=== PATIENT | female | born 1930 | race Caucasian/White ===

== ENCOUNTER → 2017-01-05 | Outpatient (CLI) | payer OTHER ==
--- NOTE | 2017-01-05 17:47 | MR ---
MRI of the Brain (Without Contrast) History: Memory loss, R 41.3. Technique: T1-weighted images were acquired axially and sagittally from the foramen magnum to the ve rtex. Axial fast inversion recovery, fast T2-weighted, GRE and diffusion-weighted axial images were obtained without contrast. Comparison: None Findings: The ventricles, cisterns, and sulci are consistent with each other and age-appropriate cer ebral atrophy, that is greater in the supratentorium. A single tiny supratentorial white matter focus of isovolumic hyperintensity and a single focus in the right floresita are consistent with microvascular ischemic change. There is no hydrocephalus, midline shift, herniation, or epidural/subdural hematomas . No intracranial hemorrhage or masses. Diffusion-weighted sequence demonstrates no acute infarct. Ce rebellar tonsils are in normal position. Pituitary gland is normal in size. Normal signal flow-void i n the superior sagittal sinus, basilar artery, and bilateral internal carotid arteries indicating pat ency. Paranasal sinuses and mastoid air cells are clear. Impression: Cerebral atrophy consistent with the patient's age. No mass lesion identified.
== END ==
LOC: FIMAGING 15:23
PROVIDERS: ATTEND Psychiatry & Neurology Neurology
DX: R41.3 Other amnesia (principal); G31.9 Degenerative disease of nervous system, unspecified

== ENCOUNTER 2017-06-20 20:49 | Emergency (ER) | payer OTHER ==
[2017-06-20 22:33] LABS: % IMMATURE GRANULYOCYTES 0.1 % (0.0-1.1); ABSOLUTE IMMATURE GRANULOCYTES 0.01 10^3/uL (0.00-0.10); ADD DIFF? NO; ADD MORPH? NO; ADD SCAN? NO; ATYPICAL LYMPHOCYTE FLAG 50 (0-99); FRAGMENT RBC FLAG 0 (0-99); HEMATOCRIT 34.9 % (38.0-47.0); HEMOGLOBIN 11.7 g/dL (12.6-16.3); LEFT SHIFT FLG 0 (0-99); LIPEMIA HEMOLYSIS FLAG 80 (0-99); MEAN CELL HEMOGLOBIN 30.5 pg (27.9-34.1); MEAN CELL HEMOGLOBIN CONCENTR. 33.5 g/dL (32.4-36.7); MEAN CELL VOLUME 91.1 fL (81.5-99.8); MEAN PLATELET VOLUME 9.6 fL (8.7-11.7); PLATELET CLUMPS FLAG 0 (0-99); PLATELET COUNT 214 10^3/uL (150-400); RED BLOOD CELL COUNT 3.83 10^6/uL (4.18-5.33); RED CELL DISTRIBUTION WIDTH 13.5 % (11.5-15.2)
[2017-06-20 22:46] LABS: ALBUMIN 3.5 g/dL (3.5-5.0); BILIRUBIN,TOTAL 0.5 mg/dL (0.1-1.4); CALCIUM 8.8 mg/dL (8.5-10.4); CREATININE 1.1 mg/dL (0.6-1.0); TOTAL PROTEIN 5.9 g/dL (6.3-8.2)
[2017-06-20] MEDS ORDERED: ceFAZolin 1 GM VIAL ONE (22:50)
[2017-06-20] MEDS ORDERED: NS 100 ML BAG (MINI-BAG) IV ONE (22:51)
[2017-06-20] MEDS ORDERED: ceFAZolin 1 GM in NS 100 ML IV ONE (23:00)
--- NOTE | 2017-06-20 23:33 | EDPHY ---
H & P Time Seen by Provider: 06/20/17 21:16 HPI/ROS: 87-year-old delightful female presents complaining of laceration to her right medial calf approximately 5 days ago, she did local wound care and was doing fine until today she noticed redness and swelling at the site around her healing laceration/skin tear She denies fever or chills, she denies posterior calf pain. Review of systems As per HPI General no fever no chills no weakness HEENT no eye pain no eye discharge. No eye redness, no sore throat Respiratory no cough, no shortness of breath Cardiac no chest pain, no peripheral edema GI no abdominal pain, no diarrhea, no constipation, no nausea, no vomiting no flank pain, no hematuria, no dysuria Musculoskeletal positive myalgias, no joint pain Heme no easy bruising, no easy bleeding Endo no polyuria, no polydipsia Skin positive rashes, no pruritus Neuro no syncope, no dizziness, no headaches Psych is no suicidal ideation, no homicidal ideation Past Medical/Surgical History: Colon cancer with resection Social History: No alcohol or drug use Smoking Status: Former smoker Physical Exam: Alert and oriented in no acute distress nontoxic appearance, afebrile Atraumatic normocephalic Neck no JVD Lungs clear to auscultation, no respiratory distress Heart regular rate and rhythm Extremities no cyanosis clubbing edema Except right lower extremity, distal medial calf with 3 cm healing laceration/ skin tear, crusted over, serosanguineous drainage no obvious purulent drainage Erythema around wound and inferior to wound approximately 8 x 10 cm area, no fluctuance, no bulla No lymphangitic streaks above wound, no foot involvement Constitutional: Initial Vital Signs Temperature (C) 36.4 C 06/20/17 21:30 Heart Rate 60 06/20/17 21:30 Respiratory Rate 16 06/20/17 21:30 Blood Pressure 136/65 H 06/20/17 21:30 O2 Sat (%) 95 06/20/17 21:30 O2 Delivery Mode Room Air Allergies/Adverse Reactions: No Known Allergies Allergy (Verified 06/20/17 21:22) Home Medications: Medication Instructions Recorded Cephalexin 500 mg PO TID #30 tablet 06/20/17 Donepezil HCl [Aricept] 10 mg PO 06/20/17 traZODone 06/20/17 Medical Decision Making ED Course/Re-evaluation: Patient seen and evaluated for infected wound, rash to right medial calf. Differential diagnosis considered Cellulitis, contact dermatitis, necrotizing fasciitis IV established, labs drawn X-ray right tib-fib to rule out gas-negative for gas negative for fluid collection CBC within normal limits Lactate negative BMP within normal limits, no acidosis Patient given cefazolin 1 g IV piggyback Impression Old laceration, partially healing-wound care done in the emergency department Cellulitis Plan There is no evidence of necrotizing fasciitis or of an overwhelming systemic sepsis. Laboratories and rash consistent with cellulitis Given 1st dose of antibiotics in emergency department Home on cephalexin 500 three times daily times 10 days Advise close follow-up Advise return for any changes in the rash, enlarging , high fevers lymphangitic streaks. - Data Points Laboratory Results: Laboratory Results 06/20/17 22:10 06/20/17 22:10 Medications Given: Discontinued Medications Cefazolin Sodium/Dextrose (Ancef 1 Gm (Premix)) 50 mls @ 200 mls/hr IV EDNOW ONE PRN Reason: Protocol Stop: 06/20/17 22:49 Last Admin: 06/20/17 23:06 Dose: Not Given Cefazolin Sodium 1 gm/ Sodium (Chloride) 100 mls @ 400 mls/hr IV EDNOW ONE PRN Reason: Protocol Stop: 06/20/17 23:14 Last Admin: 06/20/17 23:04 Dose: 100 mls Departure - Departure Disposition: Home, Routine, Self-Care Clinical Impression: Cellulitis, Cellulitis of right lower leg Condition: Good Instructions: Cellulitis (ED) Additional Instructions: Advised follow-up with your primary care physician for recheck of your rash in 1 -2 days. Referrals: Ingrid Martinez MD [Primary Care Provider] - As per Instructions Prescriptions: Cephalexin 500 mg PO TID #30 tablet
[2017-06-20 23:38] VITALS: BP 164/83; PULSE 55; RESP 12; TEMP 97.3; O2SAT 96
== END 2017-06-20 23:34 | disposition home or self-care (01) ==
LOC: CED 20:49
DX: L03.115 Cellulitis of right lower limb (principal); Z85.038 Personal history of other malignant neoplasm of large intestine; Z87.891 Personal history of nicotine dependence
CPT/HCPCS: 73590; 96365; 99284; J0690; 80053-PO; 83605-PO; 85025-PO

== ENCOUNTER → 2017-10-26 | Outpatient (CLI) | payer OTHER | LOC: BMCIMAGING 15:09 | PROVIDERS: ATTEND Internal Medicine | DX: R76.11 Nonspecific reaction to tuberculin skin test without active tuberculosis (principal); J98.4 Other disorders of lung; M48.54XD Collapsed vertebra, not elsewhere classified, thoracic region, subsequent encounter for fracture with routine healing ==